=== PATIENT | male | born 1975 | race American Indian/Alaskan Native ===

== ENCOUNTER 2016-08-28 19:41 | Emergency (ER) | payer OTHER ==
[2016-08-28 20:43] VITALS: BP 111/77
--- NOTE | 2016-08-29 00:48 | Emergency Department Report ---
Eye Injury/Foreign Body - HPI Duration: Today Severity: Mild Tetanus Status: Up to Date Eye Symptoms: Eye Pain: No, Blurred Vision: No, Eye Redness: Yes, Grinding/ Hammering Metal: No, Used Eye Protection: No, Contact Lens Use: No, Recalls Injury: Yes, Photophobia: No Other History: 41-year-old male presents with complaint of irritation and tearing to the left eye. Patient states that today while he was smoking he flicked ashes of cigarette and he felt some of it drifted into his left eye. Patient states his eye has been irritated since this morning. Patient has watery tearing of the left eye. Visible conjunctival redness. ED Review of Systems ROS: Stated complaint: L EYE PAIN Other details as noted in HPI Constitutional: denies: chills, fever Eyes: denies: eye pain, eye discharge, vision change ENT: denies: ear pain, throat pain Respiratory: denies: cough, shortness of breath, wheezing Cardiovascular: denies: chest pain, palpitations Endocrine: no symptoms reported Gastrointestinal: denies: abdominal pain, nausea, diarrhea Genitourinary: denies: urgency, dysuria Musculoskeletal: denies: back pain, joint swelling, arthralgia Skin: denies: rash, lesions Neurological: denies: headache, weakness, paresthesias Psychiatric: denies: anxiety, depression Hematological/Lymphatic: denies: easy bleeding, easy bruising ED Past Medical Hx - Past Medical History Previous Medical History?: No - Surgical History Past Surgical History?: No - Social History Smoking Status: Current Every Day Smoker Substance Use Type: Alcohol - Medications Home Medications: Home Medications Medication Instructions Recorded Confirmed Last Taken Type Ibuprofen [Motrin] 800 mg PO Q8HR PRN #20 tablet 11/14/15 Unknown Rx Sulfamethoxazole/Trimethoprim 1 each PO BID #10 tablet 11/14/15 Unknown Rx [Bactrim DS TAB] Glycerin/Propylene Glycol 1 drop OP Q4H PRN #1 bottle 08/29/16 Unknown Rx [Artificial Tears Drops] Ibuprofen [Motrin] 600 mg PO Q8H PRN #30 tablet 08/29/16 Unknown Rx Tobramycin 0.3% [Tobrex] 1 drop OS Q4H #1 bottle 08/29/16 Unknown Rx Eye Injury Exam - Exam General: Vital signs noted. No distress. Alert and acting appropriately. - Visual Acuity Left Vision Acuity Degree: 20/20 Eye Exam: Left Injection, Left Chemosis, Neither EOMI, Neither Fluorescein Uptake (no discrete forcing uptake on exam) ED Course Vital Signs 08/28/16 08/28/16 20:39 20:51 Temperature 98.4 F 98.4 F Pulse Rate 73 73 Respiratory 18 20 Rate Blood Pressure 111/77 Blood Pressure 111/77 [Right] O2 Sat by Pulse 100 100 Oximetry ED Medical Decision Making - Medical Decision Making A/P: Irritant/allergic conjunctivitis 1- artificial tears, tobramycin drops, Motrin when necessary 2- follow up with ophthalmology 3-visual acuity fully intact, no overt abrasion or ulcer on fluorescein staining Critical care attestation.: If time is entered above; I have spent that time in minutes in the direct care of this critically ill patient, excluding procedure time. ED Disposition Clinical Impression: Conjunctivitis Qualifiers: Conjunctivitis type: acute Acute conjunctivitis type: unspecified Laterality: left Qualified Code(s): H10.32 - Unspecified acute conjunctivitis, left eye Disposition: TO HOME OR SELFCARE Is pt being admited?: No Does the pt Need Aspirin: No Condition: Stable Instructions: Conjunctivitis (ED) Prescriptions: Glycerin/Propylene Glycol [Artificial Tears Drops] 1 drop OP Q4H PRN #1 bottle PRN Reason: Itching Ibuprofen [Motrin] 600 mg PO Q8H PRN #30 tablet PRN Reason: Pain Tobramycin 0.3% [Tobrex] 1 drop OS Q4H #1 bottle Referrals: TOMMY THOMAS MD [Staff Physician] - 3-5 Days Forms: Work/School Release Form(ED) Time of Disposition: 00:55
== END 2016-08-29 01:07 | disposition home or self-care (01) ==
LOC: ED 19:41
DX: H10.32 Unspecified acute conjunctivitis, left eye (principal); F17.200 Nicotine dependence, unspecified, uncomplicated
CPT/HCPCS: 99282